=== PATIENT | male | born 1950 | race Two or more races ===

== ENCOUNTER 2022-12-18 18:30 | Inpatient (IN) | payer OTHER ==
[2022-12-18 19:32] VITALS: BMI 22.4
[2022-12-18] MEDS ORDERED: ONDANSETRON *ODT* 4 MG TABLET SL PRN (22:00)
[2022-12-18] MEDS ORDERED: NALOXONE HCL (KLOXXADO) 8 MG SPRAY NS PRN (22:00)
[2022-12-18] MEDS ORDERED: guaiFENesin 600 MG TABLET.ER (FP) PO PRN (22:00)
[2022-12-18] MEDS ORDERED: ACETAMINOPHEN 325 MG TABLET (FP) PO PRN (22:00)
[2022-12-18] MEDS ORDERED: DICYCLOMINE HCL 10 MG CAPSULE PO PRN (22:00)
[2022-12-18] MEDS ORDERED: IBUPROFEN 600 MG TABLET (FP) PO PRN (22:00)
[2022-12-18] MEDS ORDERED: POLYETHYLENE GLYCOL (HEALTHYLAX) 3350 17 GM PACKET PO PRN (22:00)
[2022-12-18] MEDS ORDERED: BENZONATATE 200 MG CAPSULE PO PRN (22:00)
[2022-12-18] MEDS ORDERED: BISMUTH SUBSALICYLATE 524 MG/30 ML PO PRN (22:00)
[2022-12-18] MEDS ORDERED: MAG HYDROX/AL HYDROX/SIMETH 30 ML UNIT-DOSE CUP PO PRN (22:00)
[2022-12-18] MEDS ORDERED: IBUPROFEN 400 MG TABLET (FP) PO PRN (22:00)
[2022-12-18] MEDS ORDERED: BENZOCAINE/MENTHOL (CHLORASEPTIC ) LOZENGE MM PRN (22:00)
[2022-12-18] MEDS ORDERED: MAGNESIUM HYDROX 2400MG/30ML ORAL SUSPENSION 30 ML CUP PO PRN (22:00)
[2022-12-18] MEDS ORDERED: LOPERAMIDE HCL 2 MG CAPSULE PO PRN (22:00)
[2022-12-18] MEDS ORDERED: NALOXONE HCL 0.4 MG/ML VIAL IM PRN (22:00)
[2022-12-18] MEDS ORDERED: cloNIDine HCL 0.1 MG TABLET PO ONE (22:11)
[2022-12-18] MEDS ORDERED: cloNIDine HCL 0.1 MG TABLET ONE (22:40)
[2022-12-18] MEDS ORDERED: MELATONIN 5 MG TABLETS ONE (22:41)
[2022-12-18] MEDS: MELATONIN 5 MG TABLETS PO SCH (22:43)
[2022-12-18] MEDS: THIAMINE HCL 100 MG TABLET (FP) PO SCH (23:30)
[2022-12-19 10:14] LABS: ALBUMIN 3.9 g/dl (3.4-5.0); BLOOD UREA NITROGEN 18.4 mg/dL (7-18); CALCIUM 8.8 mg/dL (8.5-10.1)
[2022-12-19 10:15] LABS: HEMATOCRIT 33.2 % (35.4-49); HEMOGLOBIN 10.7 GM/dL (11.7-16.9); MCH 23.5 pg (25.7-33.7); MCHC 32.2 g/dl (32.0-35.9); RBC 4.55 M/mm3 (4.00-5.60); RDW 19.7 % (11.9-15.9); WHITE BLOOD COUNT 5.5 K/mm3 (4.0-10.0)
[2022-12-19 10:16] LABS: BILIRUBIN,TOTAL 1.6 mg/dL (0.2-1); CREATININE 1.1 mg/dL (0.55-1.3)
[2022-12-19 10:17] LABS: TOT PROT 7.3 g/dl (6.4-8.2)
[2022-12-19 10:18] LABS: MEAN PLT VOLUME 10.7 fl (7.5-11.1); PLATELET COUNT 130 10^3/uL (134-434)
[2022-12-19] MEDS: METHOCARBAMOL 500 MG TABLET PO PRN (10:30)
[2022-12-19] MEDS: PRENATAL VITAMINS W/ FOLIC ACID TABLET (FP) PO SCH (10:30)
[2022-12-19] MEDS ORDERED: QUEtiapine FUMARATE 50 MG TABLET PO SCH (22:00)
[2022-12-19] MEDS ORDERED: QUEtiapine FUMARATE 100 MG TABLET (FP) PO SCH (22:00)
[2022-12-19] MEDS: MELATONIN 5 MG TABLETS PO SCH (22:01)
[2022-12-19] MEDS: THIAMINE HCL 100 MG TABLET (FP) PO SCH (22:01)
[2022-12-20 06:28] VITALS: RESP 16
[2022-12-20] MEDS: PRENATAL VITAMINS W/ FOLIC ACID TABLET (FP) PO SCH (10:39)
[2022-12-20] MEDS: METHOCARBAMOL 500 MG TABLET PO PRN (10:41)
[2022-12-20 13:35] VITALS: BP 119/69; PULSE 88; TEMP 96.9
== END 2022-12-20 16:27 | disposition home or self-care (01) | DRG 897 ==
LOC: YASAS 18:30 → UNDOADMIN 22:23 → Y6N 22:23
PROVIDERS: ADMIT Allergy & Immunology; ATTEND Surgery
PROC: HZ2ZZZZ Detoxification Services for Substance Abuse Treatment (ICD-10-PCS; principal; 2022-12-18)
DX: F10.230 Alcohol dependence with withdrawal, uncomplicated (principal); F39 Unspecified mood [affective] disorder; F41.9 Anxiety disorder, unspecified; G47.00 Insomnia, unspecified; I10 Essential (primary) hypertension; M54.50 Low back pain, unspecified; G89.29 Other chronic pain; R63.4 Abnormal weight loss; Z68.22 Body mass index [BMI] 22.0-22.9, adult; Z86.59 Personal history of other mental and behavioral disorders; Z91.014 Allergy to mammalian meats
CPT/HCPCS: 36415; 80053; 85027; 86780; 93005; 93010; C9803-CS; U0003; U0005

== ENCOUNTER 2023-04-17 20:04 | Inpatient (IN) | payer OTHER ==
[2023-04-17 21:04] VITALS: BMI 22.9
[2023-04-17] MEDS ORDERED: chlordiazePOXIDE HCL 25 MG CAPSULE PO PRN (22:49)
[2023-04-17] MEDS ORDERED: BENZONATATE 200 MG CAPSULE PO PRN (22:50)
[2023-04-17] MEDS ORDERED: BENZOCAINE/MENTHOL (CHLORASEPTIC ) LOZENGE MM PRN (22:50)
[2023-04-17] MEDS ORDERED: LOPERAMIDE HCL 2 MG CAPSULE PO PRN (22:50)
[2023-04-17] MEDS ORDERED: NALOXONE HCL (KLOXXADO) 8 MG SPRAY NS PRN (22:50)
[2023-04-17] MEDS ORDERED: BISMUTH SUBSALICYLATE 524 MG/30 ML PO PRN (22:50)
[2023-04-17] MEDS ORDERED: MAGNESIUM HYDROX 2400MG/30ML ORAL SUSPENSION 30 ML CUP PO PRN (22:50)
[2023-04-17] MEDS ORDERED: ACETAMINOPHEN 325 MG TABLET (FP) PO PRN (22:50)
[2023-04-17] MEDS ORDERED: DICYCLOMINE HCL 10 MG CAPSULE PO PRN (22:50)
[2023-04-17] MEDS ORDERED: ONDANSETRON *ODT* 4 MG TABLET SL PRN (22:50)
[2023-04-17] MEDS ORDERED: MAG HYDROX/AL HYDROX/SIMETH 30 ML UNIT-DOSE CUP PO PRN (22:50)
[2023-04-17] MEDS ORDERED: POLYETHYLENE GLYCOL (HEALTHYLAX) 3350 17 GM PACKET PO PRN (22:50)
[2023-04-17] MEDS ORDERED: guaiFENesin 600 MG TABLET.ER (FP) PO PRN (22:50)
[2023-04-17] MEDS ORDERED: NALOXONE HCL 0.4 MG/ML VIAL IM PRN (22:50)
[2023-04-17] MEDS ORDERED: IBUPROFEN 600 MG TABLET (FP) PO PRN (22:50)
[2023-04-17] MEDS ORDERED: IBUPROFEN 400 MG TABLET (FP) PO PRN (22:50)
[2023-04-17] MEDS ORDERED: chlordiazePOXIDE HCL 25 MG CAPSULE ONE (23:02)
[2023-04-17] MEDS: chlordiazePOXIDE HCL 25 MG CAPSULE PO SCH (23:08)
[2023-04-17] MEDS: METHOCARBAMOL 500 MG TABLET PO PRN (23:44)
[2023-04-17] MEDS: hydrOXYzine PAMOATE 25 MG CAPSULE (FP) PO PRN (23:44)
[2023-04-18] MEDS: chlordiazePOXIDE HCL 25 MG CAPSULE PO SCH ×2 (05:26→10:34)
[2023-04-18] MEDS ORDERED: PRENATAL VITAMINS W/ FOLIC ACID TABLET (FP) PO SCH (10:00)
[2023-04-18] MEDS: hydrOXYzine PAMOATE 25 MG CAPSULE (FP) PO PRN (10:34)
[2023-04-18] MEDS: METHOCARBAMOL 500 MG TABLET PO PRN (10:34)
[2023-04-18] MEDS ORDERED: CARVEDILOL 3.125 MG TABLET (FP) PO SCH (11:30)
[2023-04-18 12:55] VITALS: BP 133/80; PULSE 85; RESP 16; TEMP 97.1
[2023-04-18] MEDS ORDERED: DONEPEZIL HCL 5 MG TABLET (FP) PO SCH (22:00)
[2023-04-18] MEDS ORDERED: THIAMINE HCL 100 MG TABLET (FP) PO SCH (22:00)
[2023-04-18] MEDS ORDERED: MELATONIN 5 MG TABLETS PO SCH (22:00)
[2023-04-19] MEDS ORDERED: chlordiazePOXIDE HCL 25 MG CAPSULE PO SCH (05:00)
[2023-04-20] MEDS ORDERED: chlordiazePOXIDE HCL 10 MG CAPSULE PO PRN
[2023-04-20] MEDS ORDERED: chlordiazePOXIDE HCL 10 MG CAPSULE PO SCH (05:00)
[2023-04-21] MEDS ORDERED: chlordiazePOXIDE HCL 10 MG CAPSULE PO SCH (05:00)
[2023-04-22] MEDS ORDERED: chlordiazePOXIDE HCL 10 MG CAPSULE PO ONE (05:00)
== END 2023-04-18 13:38 | disposition left against medical advice (07) | DRG 894 ==
LOC: YASAS 20:04 → Y6N 23:11
PROVIDERS: ADMIT Allergy & Immunology; ATTEND Allergy & Immunology
PROC: HZ2ZZZZ Detoxification Services for Substance Abuse Treatment (ICD-10-PCS; principal; 2023-04-17)
DX: F10.230 Alcohol dependence with withdrawal, uncomplicated (principal); F02.A4 Dementia in other diseases classified elsewhere, mild, with anxiety; G30.8 Other Alzheimer's disease; I10 Essential (primary) hypertension; M54.50 Low back pain, unspecified; G89.29 Other chronic pain
CPT/HCPCS: 87635